=== PATIENT | male | born 1985 | race Hispanic/Latino ===

== ENCOUNTER 2020-06-20 11:16 | Emergency (ER) | payer SELFPAY ==
--- NOTE | 2020-06-20 14:10 | RAD REPORT ---
EXAM DESCRIPTION: Eriberto Single View06/20/2020 2:01 pm CLINICAL HISTORY: Palpitations COMPARISON: none FINDINGS: The lungs appear clear of acute infiltrate. The heart is normal size IMPRESSION: No acute abnormalities displayed
[2020-06-20 15:19] LABS: Absolute Lymphocytes (CBC) 1.4 K/uL (0.7-4.9); Basophils % 0.5 % (0-1.3); Hematocrit 43.4 % (39.6-49.0); Lymphocytes % 12.6 % (15.3-44.8); MPV 9.6 fL (7.6-11.3); RBC Red Blood Cell Count 5.27 M/uL (4.33-5.43)
[2020-06-20 15:20] LABS: Protime INR 1.02
[2020-06-20 15:28] LABS: ALT/SGPT 37 U/L (12-78); AST/SGOT 18 U/L (15-37); Albumin 3.9 g/dL (3.4-5.0); Alkaline Phosphatase 126 U/L (45-117); BUN Blood Urea Nitrogen 10 mg/dL (7-18); Bicarbonate 23 mmol/L (21-32); Bilirubin Direct 0.2 mg/dL (0-0.2); Bilirubin Total 0.8 mg/dL (0.2-1.0); Glucose Level 97 mg/dL (74-106); Magnesium 2.3 mg/dL (1.8-2.4); NT PRO-BNP 31 pg/mL (<125); Potassium 3.6 mmol/L (3.5-5.1); Protein, Total 7.9 g/dL (6.4-8.2); Sodium Level 139 mmol/L (136-145); Troponin (Emerg Dept Use Only) < 0.02 ng/mL (0.0-0.045)
[2020-06-20 17:17] LABS: Barbiturates NEGATIVE (NEGATIVE); Benzodiazepines NEGATIVE (NEGATIVE); Cocaine NEGATIVE (NEGATIVE); METHAMPHETAM NEGATIVE (NEGATIVE); Methadone NEGATIVE (NEGATIVE); Opiates NEGATIVE (NEGATIVE); Phencyclidine NEGATIVE (NEGATIVE); THC Cannibis NEGATIVE (NEGATIVE)
--- NOTE | 2020-06-20 17:51 | EDPHYS ---
Physician Documentation [facility] Name: Jacqueline Lozano Age: 34 yrs Sex: Male : 1985 Arrival Date: 06/20/2020 Time: 11:18 Bed 16 Private MD: Kofi Baldwin ED Physician Francisco Sanchez HPI: 06/20 18:42 This 34 yrs old Male presents to ER via Ambulatory with complaints of tw4 Palpitations. 18:42 The patient presents with a history of irregular heart beat, heart racing. Context: The tw4 symptoms occur at rest. Onset: The symptoms/episode began/occurred 2 month(s) ago, and became worse 1 week(s) ago, and became persistent 1 weeks ago. Duration: The patient or guardian reports a single episode. Modifying factors: The symptoms are aggravated by nothing. The symptoms are alleviated by nothing. Severity of symptoms: At their worst the symptoms were moderate in the emergency department the symptoms are unchanged. The patient has not experienced similar symptoms in the past. Historical: - Allergies: 12:05 red dye; aa5 - Home Meds: 12:05 losartan 100 mg oral tab 1 tab once daily [Active]; acetazolamide 500 mg oral cpER once aa5 daily [Active]; - PMHx: 12:05 Hypertension; Brain cyst; aa5 - Immunization history:: Adult Immunizations up to date. - Social history:: Smoking status: Patient denies any tobacco usage or history of. ROS: 18:42 Constitutional: Negative for fever, chills, and weight loss, Eyes: Negative for injury, tw4 pain, redness, and discharge, Respiratory: Negative for shortness of breath, cough, wheezing, and pleuritic chest pain, Abdomen/GI: Negative for abdominal pain, nausea, vomiting, diarrhea, and constipation, Back: Negative for injury and pain, MS/Extremity: Negative for injury and deformity, Skin: Negative for injury, rash, and discoloration, Neuro: Negative for headache, weakness, numbness, tingling, and seizure. 18:42 Cardiovascular: Positive for palpitations, Negative for chest pain, edema, orthopnea. Exam: 18:42 Constitutional: This is a well developed, well nourished patient who is awake, alert, tw4 and in no acute distress. Head/Face: Normocephalic, atraumatic. Chest/axilla: Normal chest wall appearance and motion. Nontender with no deformity. No lesions are appreciated. Cardiovascular: Regular rate and rhythm with a normal S1 and S2. No gallops, murmurs, or rubs. Normal PMI, no JVD. No pulse deficits. Respiratory: Lungs have equal breath sounds bilaterally, clear to auscultation and percussion. No rales, rhonchi or wheezes noted. No increased work of breathing, no retractions or nasal flaring. Abdomen/GI: Soft, non-tender, with normal bowel sounds. No distension or tympany. No guarding or rebound. No evidence of tenderness throughout. Back: No spinal tenderness. No costovertebral tenderness. Full range of motion. MS/ Extremity: Pulses equal, no cyanosis. Neurovascular intact. Full, normal range of motion. Neuro: Awake and alert, GCS 15, oriented to person, place, time, and situation. Cranial nerves II-XII grossly intact. Motor strength 5/5 in all extremities. Sensory grossly intact. Cerebellar exam normal. Normal gait. Vital Signs: 11:50 BP 165 / 87; Pulse 115; Resp 20 S; Temp 98.2(O); Pulse Ox 100% on R/A; Weight 204.12 kg aa5 (R); Height 6 ft. 1 in. (185.42 cm) (R); 15:48 BP 124 / 82; Pulse 92; Resp 16; Pulse Ox 100% ; ll1 18:05 BP 134 / 82; Pulse 84; Resp 18; Pulse Ox 100% on R/A; ll1 11:50 Body Mass Index 59.37 (204.12 kg, 185.42 cm) aa5 MDM: 14:30 Patient medically screened. tw4 18:42 Differential diagnosis: arrythmia, stress disorder. Data reviewed: vital signs, nurses tw4 notes. Data reviewed: radiologic studies, plain films. Data interpreted: Pulse oximetry: Interpretation: normal. Counseling: I had a detailed discussion with the patient and/or guardian regarding: the historical points, exam findings, and any diagnostic results supporting the discharge/admit diagnosis, lab results, radiology results. Special discussion: I discussed with the patient/guardian in detail that at this point there is no indication for admission to the hospital. It is understood, however, that if the symptoms persist or worsen the patient needs to return immediately for re-evaluation. 06/20 11:43 Order name: Basic Metabolic Panel [facility] 06/20 11:43 Order name: CBC with Diff; Complete Time: 15:55 [facility] 06/20 15:56 Interpretation: Normal except: MCH 26.8; RDW 16.0; NEUT A 8.8; LYM% 12.6; GALILEO% 81.4. [facility] 06/20 11:43 Order name: LFT's [facility] 06/20 11:43 Order name: Magnesium 06/20 11:43 Order name: NT PRO-BNP; Complete Time: 15:55 [facility] 06/20 15:56 Interpretation: Within normal limits: NT PRO-BNP 31. [facility] 06/20 11:43 Order name: PT-INR; Complete Time: 15:55 [facility] 06/20 15:56 Interpretation: Within normal limits: PT 11.7. [facility] 06/20 11:43 Order name: Troponin (emerg Dept Use Only); Complete Time: 15:55 [facility] 06/20 15:56 Interpretation: Within normal limits: TROPED < 0.02. [facility] 06/20 11:43 Order name: XRAY Chest (1 view); Complete Time: 14:37 [facility] 06/20 18:46 Interpretation: No acute disease: Per Radiologist's finding(s): [facility] [place] [address] RADIOLOGY SERVICES REPORT Name: JACQUELINE LOZANO Acct Number: [id number] :1985 Age:34 Sex:M Ord Phys: Francisco Sanchez MD Unit Number: [id number] Prim Care Dr: Kofi Baldwin MD Status: REG ER ER Exam Date: 06/20/20 EXAM DESCRIPTION: RADChest Single View06/20/2020 2:01 pm CLINICAL HISTORY: Palpitations COMPARISON: none FINDINGS: The lungs appear clear of acute infiltrate. The heart is normal size IMPRESSION: No acute abnormalities displayed Signed By: Mauricio Law MD Signed AT: 06/20/20 1410 . 06/20 11:43 Order name: EKG; Complete Time: 11:44 [facility] 06/20 11:43 Order name: Basic Metabolic Panel; Complete Time: 15:55 EDMS 06/20 15:56 Interpretation: Normal except: CL 108. tw4 06/20 11:43 Order name: Liver (Hepatic) Function; Complete Time: 15:55 EDMS 06/20 15:56 Interpretation: Normal except: A/G 1.0; GLOB 4.0; ALK 126. tw4 06/20 11:43 Order name: Magnesium; Complete Time: 15:55 EDMS 06/20 15:57 Interpretation: Within normal limits: MG 2.3. [facility] 06/20 14:32 Order name: Urine Drug Screen; Complete Time: 18:46 tw4 06/20 18:47 Interpretation: Within normal limits. [facility] 06/20 16:25 Order name: Urine Dipstick--Ancillary (enter results) 06/20 11:43 Order name: Cardiac monitoring; Complete Time: 14:52 [facility] 06/20 11:43 Order name: EKG - Nurse/Tech; Complete Time: 14:37 [facility] 06/20 11:43 Order name: IV Saline Lock; Complete Time: 14:52 [facility] 06/20 11:43 Order name: Labs collected and sent; Complete Time: 14:52 [facility] 06/20 11:43 Order name: O2 Per Protocol; Complete Time: 14:37 [facility] 06/20 11:43 Order name: O2 Sat Monitoring; Complete Time: 14:37 tw4 EC:42 Rhythm is regular. QRS Burns is Normal. WI interval is normal. QRS interval is normal. tw4 QT interval is normal. No Q waves. T waves are Normal. No ST changes noted. Clinical impression: Sinus tachycardia. Interpreted by me. Reviewed by me. Administered Medications: No medications were administered Disposition: 06/20/20 17:50 Discharged to Home. Impression: Palpitations. - Condition is Stable. - Discharge Instructions: Palpitations, Palpitations, [id number]. - Medication Reconciliation Form, Thank You Letter, Antibiotic Education, Prescription Opioid Use, Work release form form. - Follow up: Kofi Baldwin MD; When: Upon discharge from the Emergency Department; Reason: Recheck today's complaints, Continuance of care, Re-evaluation by your physician. Follow up: Angel Chance MD; When: Upon discharge from the Emergency Department; Reason: Recheck today's complaints, Continuance of care, Re-evaluation by your physician. Follow up: Marco Antonio Muse MD; When: Upon discharge from the Emergency Department; Reason: Recheck today's complaints, Continuance of care, Re-evaluation by your physician. Follow up: Yonatan Salcedo MD; When: Upon discharge from the Emergency Department; Reason: Recheck today's complaints, Continuance of care, Re-evaluation by your physician. - Problem is new. - Symptoms have improved. Signatures: Dispatcher [employer] EDMS Lula Booth RN RN aa5 Francisco Sanchez MD MD tw4 Caty Barnard RN RN ll1 Corrections: (The following items were deleted from the chart) 17:51 17:50 06/20/2020 17:50 Discharged to Home. Impression: Palpitations. Condition is tw4 Stable. Forms are Medication Reconciliation Form, Thank You Letter, Antibiotic Education, Prescription Opioid Use. Follow up: Kofi Baldwin; When: Upon discharge from the Emergency Department; Reason: Recheck today's complaints, Continuance of care, Re-evaluation by your physician. Problem is new. Symptoms have improved. tw4 18:09 17:51 06/20/2020 17:50 Discharged to Home. Impression: Palpitations. Condition is ll1 Stable. Discharge Instructions: Palpitations, Palpitations, [id number]. Forms are Medication Reconciliation Form, Thank You Letter, Antibiotic Education, Prescription Opioid Use. Follow up: Kofi Baldwin; When: Upon discharge from the Emergency Department; Reason: Recheck today's complaints, Continuance of care, Re-evaluation by your physician. Follow up: Angel Chance; When: Upon discharge from the Emergency Department; Reason: Recheck today's complaints, Continuance of care, Re-evaluation by your physician. Follow up: Marco Antonio Muse; When: Upon discharge from the Emergency Department; Reason: Recheck today's complaints, Continuance of care, Re-evaluation by your physician. Follow up: Yonatan Salcedo; When: Upon discharge from the Emergency Department; Reason: Recheck today's complaints, Continuance of care, Re-evaluation by your physician. Problem is new. Symptoms have improved. tw4
--- NOTE | 2020-06-20 17:51 | ER ---
Nurse's Notes [facility] Name: Cali Lozano Age: 34 yrs Sex: Male : 1985 Arrival Date: 06/20/2020 Time: 11:18 Bed 16 Private MD: Kofi Baldwin Diagnosis: Palpitations Presentation: 06/20 11:50 Chief complaint: Patient states: heart palpitations that began today and have not gone aa5 away. Pt also reports SOB. Pt reports slight cough and intermittent chest pain. 11:50 Coronavirus screen: cough unrelated to allergies. Ebola Screen: Patient negative for aa5 fever greater than or equal to 101.5 degrees Fahrenheit, and additional compatible Ebola Virus Disease symptoms. Initial Sepsis Screen: Does the patient meet any 2 criteria? HR > 90 bpm. Does the patient have a suspected source of infection? No. Patient's initial sepsis screen is negative. Risk Assessment: Do you want to hurt yourself or someone else? Patient reports no desire to harm self or others. Onset of symptoms was June 20, 2020. 11:50 Acuity: MORALES 3 aa5 11:50 Method Of Arrival: Ambulatory aa5 Historical: - Allergies: 12:05 red dye; aa5 - Home Meds: 12:05 losartan 100 mg oral tab 1 tab once daily [Active]; acetazolamide 500 mg oral cpER once aa5 daily [Active]; - PMHx: 12:05 Hypertension; Brain cyst; aa5 - Immunization history:: Adult Immunizations up to date. - Social history:: Smoking status: Patient denies any tobacco usage or history of. Assessment: 14:30 General: Appears in no apparent distress. Behavior is calm, cooperative, appropriate ll1 for age. Pain: Denies pain. Neuro: No deficits noted. Cardiovascular: Reports palpitations, Heart tones S1 S2 Capillary refill < 3 seconds JVD is absent Patient's skin is warm and dry. Respiratory: Reports cough that is Breath sounds are clear bilaterally. the patient has mild shortness of breath. GI: No deficits noted. 15:30 Reassessment: No changes from previously documented assessment. Patient and/or family ll1 updated on plan of care and expected duration. Pain level reassessed. 16:30 Reassessment: No changes from previously documented assessment. Patient and/or family ll1 updated on plan of care and expected duration. Pain level reassessed. Patient is alert, oriented x 3, equal unlabored respirations, skin warm/dry/pink. 17:30 Reassessment: No changes from previously documented assessment. Patient and/or family ll1 updated on plan of care and expected duration. Pain level reassessed. Patient is alert, oriented x 3, equal unlabored respirations, skin warm/dry/pink. Vital Signs: 11:50 BP 165 / 87; Pulse 115; Resp 20 S; Temp 98.2(O); Pulse Ox 100% on R/A; Weight 204.12 kg aa5 (R); Height 6 ft. 1 in. (185.42 cm) (R); 15:48 BP 124 / 82; Pulse 92; Resp 16; Pulse Ox 100% ; ll1 18:05 BP 134 / 82; Pulse 84; Resp 18; Pulse Ox 100% on R/A; ll1 11:50 Body Mass Index 59.37 (204.12 kg, 185.42 cm) aa5 ED Course: 11:18 Patient arrived in ED. mr 11:19 Kofi Baldwin MD is Private Physician. mr 11:50 Arm band placed on. aa5 11:55 EKG completed in triage. Results shown to MD. aa5 12:03 Triage completed. aa5 13:54 XRAY Chest (1 view) In Process Unspecified. EDNJ 14:30 Francisco Sanchez MD is Attending Physician. tw4 14:33 Caty Barnard, CAROLE is Primary Nurse. ll1 17:50 Kofi Baldwin MD is Referral Physician. tw4 17:51 Angel Chance MD is Referral Physician. tw4 17:51 Marco Antonio Muse MD is Referral Physician. tw4 17:51 Yonatan Salcedo MD is Referral Physician. tw4 18:05 Inserted saline lock: 20 gauge in right antecubital area, using aseptic technique. ll1 Blood collected. 18:08 No provider procedures requiring assistance completed. IV discontinued, intact, ll1 bleeding controlled, No redness/swelling at site. Pressure dressing applied. Administered Medications: No medications were administered Outcome: 17:50 Discharge ordered by . tw4 18:09 Patient left the ED. ll1 Signatures: Dispatcher [facility] Magaly Cazares Audri, RN RN aa5 Francisco Sanchez MD MD tw4 Caty Barnard RN RN ll1 Corrections: (The following items were deleted from the chart) 12: 11:50 Chief complaint: Patient states: heart palpitations that began today and have not aa5 gone away. Pt also reports SOB. Pt reports slight cough aa5 12: 11:50 BP 165 / 87; Pulse 115bpm; Resp 20bpm; Spontaneous; Pulse Ox 100% RA; Temp 98.2F aa5 Oral; aa5
[2020-06-20 18:15] VITALS: TEMP 98.2; O2SAT 100
[2020-06-20 18:18] VITALS: BP 134/82
[2020-06-20 19:44] LABS: Urine Blood NEGATIVE (NEG); Urine Glucose NEGATIVE (NEG); Urine Protein NEGATIVE (NEG); Urine pH 6.5 (5.0-7.0)
--- NOTE | 2020-06-21 08:31 | EKG ---
Test Date: 2020-06-20 Test Time: 11:56:34 Rebeamer: HAY MEASUREMENT RESULTS: Intervals: Rate: 114 ME: 158 QRSD: 86 QT: 342 QTc: 471 [place]field: P: 49 ME: 158 QRS: -34 T: 15 INTERPRETIVE STATEMENTS: Sinus tachycardia Left axis deviation Inferior infarct, age undetermined Cannot rule out Anterior infarct, age undetermined Abnormal ECG No previous ECG available for comparison Electronically Signed On 06-21-20 08:29:07 [employer] by Angel Chance
== END 2020-06-20 18:09 | disposition home or self-care (01) ==
LOC: ER 11:16
DX: R00.2 Palpitations (principal); I10 Essential (primary) hypertension
CPT/HCPCS: 36415; 71045; 80048; 80076; 80307; 81003; 83735; 83880; 84484; 85025; 85610; 93005; 99283

== ENCOUNTER 2021-03-15 13:38 | Emergency (ER) | payer OTHER ==
--- NOTE | 2021-03-15 15:47 | RAD REPORT ---
EXAM DESCRIPTION: RAD - Tib Fib Left - 03/15/2021 2:48 pm CLINICAL HISTORY: Left leg injury, fall COMPARISON: None. FINDINGS: No fracture is identified. There is no dislocation or periosteal reaction noted. No acute or suspicious bony finding. No foreign body or other soft tissue abnormality. IMPRESSION: Negative left tibia & fibula examination.
--- NOTE | 2021-03-15 15:50 | ER ---
Nurse's Notes [facility] Name: Cali Lozano Age: 35 yrs Sex: Male : 1985 Arrival Date: 03/15/2021 Time: 13:40 Bed 11 Private MD: Kofi Baldwin Diagnosis: Contusion of left knee Presentation: 03/15 13:57 Chief complaint: Patient states: yesterday pt was walking and rolled Right ankle and vg1 fell onto Left knee. Pt states pain in Left zimmerman that radiates up to Left knee. Coronavirus screen: Vaccine status: Patient reports receiving the 2nd dose of the covid vaccine. Ebola Screen: Patient negative for fever greater than or equal to 101.5 degrees Fahrenheit, and additional compatible Ebola Virus Disease symptoms. Initial Sepsis Screen: Does the patient meet any 2 criteria? HR > 90 bpm. Does the patient have a suspected source of infection? No. Patient's initial sepsis screen is negative. Risk Assessment: Do you want to hurt yourself or someone else? Patient reports no desire to harm self or others. Onset of symptoms was March 14, 2021. 13:57 Method Of Arrival: Ambulatory vg1 13:57 Acuity: MORALES 4 vg1 Triage Assessment: 13:59 General: Appears in no apparent distress. uncomfortable, Behavior is calm, cooperative. vg1 Pain: Complains of pain in left knee Pain currently is 0 out of 10 on a pain scale. at worst was 8 out of 10 on a pain scale. Quality of pain is described as sharp, shooting, Pain began 1 day ago. Musculoskeletal: Circulation, motion, and sensation intact. Historical: - Allergies: 13:59 Red Dye; vg1 - Home Meds: 13:59 losartan 100 mg Oral tab 1 tab once daily [Active]; acetazolamide 500 mg Oral cpER once vg1 daily [Active]; - PMHx: 13:59 Hypertension; BRAIN CYST; vg1 - PSHx: 13:59 None; vg1 - Immunization history:: Client reports receiving the 2nd dose of the Covid vaccine, Flu vaccine is up to date. - Social history:: Smoking status: Patient denies any tobacco usage or history of. Screenin:03 Abuse screen: Denies threats or abuse. Denies injuries from another. Nutritional ss screening: No deficits noted. Tuberculosis screening: Never had TB. Fall Risk None identified. Assessment: 15:03 General: Behavior is calm, cooperative. Pain: Complains of pain in left leg and left ss knee Pain currently is 8 out of 10 on a pain scale. Neuro: Level of Consciousness is awake, alert, obeys commands, Oriented to person, place, time, situation. Respiratory: Airway is patent Respiratory effort is even, unlabored, Respiratory pattern is regular, symmetrical. Derm: Skin is intact, is healthy with good turgor, Skin is pink, warm \T\ dry. normal. 15:55 Reassessment: Patient appears in no apparent distress at this time. Patient and/or ss family updated on plan of care and expected duration. Pain level reassessed. Patient is alert, oriented x 3, equal unlabored respirations, skin warm/dry/pink. Vital Signs: 13:57 BP 165 / 93; Pulse 108; Resp 18; Temp 97.7; Pulse Ox 97% ; Weight 205.48 kg; Height 6 vg1 ft. 1 in. (185.42 cm); Pain 8/10; 13:57 Body Mass Index 59.77 (205.48 kg, 185.42 cm) vg1 ED Course: 13:40 Patient arrived in ED. as 13:41 Kofi Baldwin MD is Private Physician. as 13:59 Triage completed. vg1 13:59 Arm band placed on. vg1 14:01 [facility] Blount [facility]C [facility] kb 14:01 Stephen Sanchez MD is Attending Physician. kb 14:48 Tib Fib Left XRAY In Process Unspecified. EDMS 15:03 Patient has correct armband on for positive identification. Bed in low position. Call ss light in reach. 15:03 No provider procedures requiring assistance completed. Patient did not have IV access ss during this emergency room visit. 15:33 Leidy Erickson, CAROLE is Primary Nurse. ss Administered Medications: No medications were administered Outcome: 15:49 Discharge ordered by . kb 15:55 Discharged to home ambulatory, with significant other. ss 15:55 Condition: good 15:55 Discharge instructions given to patient, family, Instructed on discharge instructions, follow up and referral plans. Demonstrated understanding of instructions, follow-up care. 15:56 Patient left the ED. ss Signatures: Dispatcher [employer] EDOK Faby Blount FNP-C FNP-Mellisa Felix Shelby, RN RN ss Mandy Dean RN RN vg1
--- NOTE | 2021-03-15 15:50 | EDPHYS ---
Physician Documentation [facility] Name: Cali Lozano Age: 35 yrs Sex: Male : 1985 Arrival Date: 03/15/2021 Time: 13:40 Bed 11 Private MD: Kofi Baldwin ED Physician Stephen Sanchez HPI: 03/15 15:54 This 35 yrs old Male presents to ER via Ambulatory with complaints of Knee kb Injury, Leg Injury. 15:54 The patient presents with a contusion, an injury, pain, swelling, tenderness. The kb complaints affect the left zimmerman and left knee. Modifying factors: The symptoms are alleviated by nothing. the symptoms are aggravated by nothing. Associated signs and symptoms: Pertinent positives: swelling, Pertinent negatives calf tenderness, fever, nausea, numbness, rash, tingling, vomiting, warmth, weakness. Severity of symptoms: At their worst the symptoms were moderate, in the emergency department the symptoms are unchanged. The patient has not experienced similar symptoms in the past. The patient has not recently seen a physician. 15:55 Context: The problem was sustained at home, resulted from the patient falling, while kb walking, the patient can fully bear weight, the patient is able to ambulate, Problem is a result from a previous injury: No. Onset: The symptoms/episode began/occurred yesterday. Treatment prior to arrival includes: no previous treatment. Pt states he tripped and fell onto left knee yesterday. c/o pain to knee and zimmerman area. Historical: - Allergies: 13:59 Red Dye; vg1 - Home Meds: 13:59 losartan 100 mg Oral tab 1 tab once daily [Active]; acetazolamide 500 mg Oral cpER once vg1 daily [Active]; - PMHx: 13:59 Hypertension; BRAIN CYST; vg1 - PSHx: 13:59 None; vg1 - Immunization history:: Client reports receiving the 2nd dose of the Covid vaccine, Flu vaccine is up to date. - Social history:: Smoking status: Patient denies any tobacco usage or history of. ROS: 15:51 Constitutional: Negative for fever, chills, and weight loss. kb 15:51 MS/extremity: Positive for contusion, ecchymosis, pain, swelling, tenderness, of the left knee and left zimmerman. 15:51 All other systems are negative. Exam: 15:52 Constitutional: This is a well developed, well nourished patient who is awake, alert, kb and in no acute distress. Head/Face: Normocephalic, atraumatic. ENT: Moist Mucous membranes Respiratory: Respirations even and unlabored. No increased work of breathing, no retractions or nasal flaring. Skin: Warm, dry with normal turgor. Normal color. Neuro: Awake and alert, GCS 15, oriented to person, place, time, and situation. Moves all extremities. Normal gait. Psych: Awake, alert, with orientation to person, place and time. Behavior, mood, and affect are within normal limits. 15:52 Musculoskeletal/extremity: Extremities: grossly normal except: noted in the left quadriceps, left knee and left zimmerman: contusion, ecchymosis, pain, swelling, tenderness, ROM: intact in all extremities, Circulation is intact in all extremities. Sensation intact. Weight bearing: able to fully bear weight. Vital Signs: 13:57 BP 165 / 93; Pulse 108; Resp 18; Temp 97.7; Pulse Ox 97% ; Weight 205.48 kg; Height 6 vg1 ft. 1 in. (185.42 cm); Pain 8/10; 13:57 Body Mass Index 59.77 (205.48 kg, 185.42 cm) vg1 MDM: 14:01 Patient medically screened. kb 15:49 Data reviewed: vital signs, nurses notes. Data interpreted: Pulse oximetry: on room air kb is 97 %. Interpretation: normal. Counseling: I had a detailed discussion with the patient and/or guardian regarding: the historical points, exam findings, and any diagnostic results supporting the discharge/admit diagnosis, radiology results, the need for outpatient follow up, a orthopedic surgeon, to return to the emergency department if symptoms worsen or persist or if there are any questions or concerns that arise at home. 03/15 14:01 Order name: Tib Fib Left XRAY; Complete Time: 15:49 kb Administered Medications: No medications were administered Disposition: 17:18 Co-signature as Attending Physician, Stephen Sanchez MD. rn Disposition Summary: 03/15/21 15:49 Discharge Ordered Location: Home kb Condition: Stable kb Diagnosis - Contusion of left knee kb Followup: kb - With: Emergency Department - When: As needed - Reason: Worsening of condition Followup: kb - With: Private Physician - When: 2 - 3 days - Reason: Recheck today's complaints, Continuance of care, Re-evaluation by your physician Discharge Instructions: - Discharge Summary Sheet kb - Contusion, [id number] kb Forms: - Medication Reconciliation Form kb - Thank You Letter kb - Antibiotic Education kb - Prescription Opioid Use kb Signatures: Dispatcher [employer] EDMS Faby Blount, CONCRETE SPREADER-C CONCRETE SPREADER-Stephen Llanos MD MD rn Jermaine, Mandy RN RN vg1 Corrections: (The following items were deleted from the chart) 14:47 14:02 Femur Left+RAD.RAD.BRZ ordered. EDMS EDMS
[2021-03-15 16:12] VITALS: BP 165/93; TEMP 97.7; O2SAT 97
== END 2021-03-15 15:56 | disposition home or self-care (01) ==
LOC: ER 13:38
DX: S80.02XA Contusion of left knee, initial encounter (principal); W19.XXXA Unspecified fall, initial encounter; Y93.01 Activity, walking, marching and hiking; Y92.009 Unspecified place in unspecified non-institutional (private) residence as the place of occurrence of the external cause; I10 Essential (primary) hypertension; Z91.02 Food additives allergy status
CPT/HCPCS: 99283